=== PATIENT | female | born 1950 | race Caucasian/White ===

== ENCOUNTER → 2021-05-14 | Outpatient (CLI) | payer OTHER ==
[2021-05-14 13:40] LABS: Protein, Urine Quantitative <5.0 mg/dL (0.0-11.9)
== END | disposition home or self-care (01) ==
LOC: LAB 08:30 → LAB SHORT 08:30
PROVIDERS: Family Medicine
DX: R80.9 Proteinuria, unspecified (principal)
CPT/HCPCS: 81050; 84156

== ENCOUNTER → 2021-07-29 | Outpatient (CLI) | payer OTHER | END | disposition home or self-care (01) | LOC: LAB 11:51 → LAB SHORT 11:51 | DX: R82.998 Other abnormal findings in urine (principal) | CPT/HCPCS: 87086 ==

== ENCOUNTER → 2021-08-11 | Outpatient (CLI) | payer MEDICARE ==
[2021-08-12 13:59] LABS: Stool Occult Bld Immuno 1 Positive (NEGATIVE)
== END | disposition home or self-care (01) ==
LOC: LAB SHORT 05:40
PROVIDERS: Family Medicine
DX: Z12.11 Encounter for screening for malignant neoplasm of colon (principal)
CPT/HCPCS: G0328

== ENCOUNTER 2021-09-15 13:00 | Day surgery (SDC) | payer MEDICARE ==
[~2021-09-15] VITALS: Ht 162.6 cm; Wt 84.6 kg
[~2021-09-15 13:00] MED LIST: ALBU90OI; ATOR20; INSDET100; INVOKANA300 MG
--- NOTE | 2021-09-15 15:49 | NUR ---
09/15/21 1549 Delma Holman 17CC TOTAL OF SALINE INJECTED INTO DIFFERENT POLYPS TO HELP IN REMOVAL. PATIENT TOLERATED THIS WITHOUT PROBLEMS
--- NOTE | 2021-09-15 16:01 | NUR ---
09/15/21 1601 Delma Holman PATIENT REFUSED MULTIPLE OFFERS OF SOMETHING TO DRINK
== END 2021-09-15 15:58 | disposition home or self-care (01) ==
LOC: ORSCSDS 13:00
PROVIDERS: Internal Medicine Gastroenterology
PROC: 3E0H8KZ Introduction of Other Diagnostic Substance into Lower GI, Via Natural or Artificial Opening Endoscopic (ICD-10-PCS; principal; 2021-09-15 14:15)
PROC: 0DBP8ZX Excision of Rectum, Via Natural or Artificial Opening Endoscopic, Diagnostic (ICD-10-PCS; principal; 2021-09-15 14:15)
PROC: 0DBN8ZX Excision of Sigmoid Colon, Via Natural or Artificial Opening Endoscopic, Diagnostic (ICD-10-PCS; principal; 2021-09-15 14:15)
PROC: 0DBL8ZX Excision of Transverse Colon, Via Natural or Artificial Opening Endoscopic, Diagnostic (ICD-10-PCS; principal; 2021-09-15 14:15)
PROC: 0DBM8ZX Excision of Descending Colon, Via Natural or Artificial Opening Endoscopic, Diagnostic (ICD-10-PCS; principal; 2021-09-15 14:15)
PROC: 0DBE8ZX Excision of Large Intestine, Via Natural or Artificial Opening Endoscopic, Diagnostic (ICD-10-PCS; principal; 2021-09-15 14:15)
DX: K92.1 Melena (principal); R19.7 Diarrhea, unspecified; C18.4 Malignant neoplasm of transverse colon; Z85.038 Personal history of other malignant neoplasm of large intestine; Z86.010 Personal history of colon polyps; Z80.0 Family history of malignant neoplasm of digestive organs; D12.5 Benign neoplasm of sigmoid colon; D12.4 Benign neoplasm of descending colon; D12.3 Benign neoplasm of transverse colon; D12.8 Benign neoplasm of rectum; K64.4 Residual hemorrhoidal skin tags; E11.9 Type 2 diabetes mellitus without complications; Z79.4 Long term (current) use of insulin; Z79.899 Other long term (current) drug therapy
CPT/HCPCS: 82947; 88305; J2704; J7120

== ENCOUNTER 2021-11-11 08:37 | Day surgery (SDC) | payer MEDICARE ==
[~2021-11-11] VITALS: Ht 162.6 cm; Wt 83.3 kg
[~2021-11-11 08:37] MED LIST changes: -ALBU90OI; +ALBU90OI INH; -ATOR20; +ATOR20 PO; +IBUP800 PO; +METF500 PO; +OZEMPIC0.25 MG/0. SC; +PARAFON FORTE PO
--- NOTE | 2021-11-11 11:31 | NUR ---
REPORT TO GENIA RODRIGUEZ. DAIRY SPECIALIST AT BEDSIDE
--- NOTE | 2021-11-11 12:32 | NUR ---
Discharge instructions reviewed with patient. Patient verbalizes understanding. Copy given to patient to take home. Dressing to procedure site clean, dry, intact with no visible drainage, swelling, erythema or bruising noted.
--- NOTE | 2021-11-11 12:49 | NUR ---
Discharge instructions reviewed with patient. Patient verbalizes understanding. Copy given to patient to take home. Discharged via wheelchair to private car for ride home.
== END 2021-11-11 12:50 | disposition home or self-care (01) ==
LOC: ORSCMMR 08:37 → ORD 10:00 → ORSCMMR 10:00
PROVIDERS: Surgery
PROC: 05HM33Z Insertion of Infusion Device into Right Internal Jugular Vein, Percutaneous Approach (ICD-10-PCS; principal; 2021-11-11 10:00)
PROC: B543ZZA Ultrasonography of Right Jugular Veins, Guidance (ICD-10-PCS; principal; 2021-11-11 10:00)
DX: C18.4 Malignant neoplasm of transverse colon (principal); E11.9 Type 2 diabetes mellitus without complications; J45.909 Unspecified asthma, uncomplicated; Z79.84 Long term (current) use of oral hypoglycemic drugs; Z79.899 Other long term (current) drug therapy
CPT/HCPCS: 77001; 82947; C1788; J0690; J1100; J1642; J2250; J2405; J2704; J3010; J7120

== ENCOUNTER 2022-02-28 11:49 | Inpatient (IN) | payer MEDICARE ==
[~2022-02-28] VITALS: Ht 162.6 cm; Wt 76.0 kg
[2022-02-28 14:01] LABS: BASOPHILS ABSOLUTE AUTO 0.06 K/mm3 (0.00-0.23); BASOPHILS PERCENT AUTO 1 % (0-2); EOSINOPHILS ABSOLUTE AUTO 0.03 K/mm3 (0.00-0.68); EOSINOPHILS PERCENT AUTO 0 % (0-6); Hematocrit 42.6 % (33.0-51.0); IMMATURE GRAN ABSOLUTE AUTO 0.21 K/mm3 (0.00-0.10); IMMATURE GRAN PERCENT AUTO 3 % (0-1); LYMPHOCYTES PERCENT AUTO 15 % (21-46); MONOCYTES ABSOLUTE AUTO 1.02 K/mm3 (0.16-1.47); MONOCYTES PERCENT AUTO 12 % (4-13); Mean Corpuscular HGB Conc 32.9 g/dL (31.5-36.5); Mean Corpuscular Volume 88 fL (80-100); Mean Platelet Volume 9.6 fL (9.1-12.4); NEUTROPHILS ABSOLUTE AUTO 5.77 K/mm3 (1.96-9.15); NEUTROPHILS PERCENT AUTO 70 % (41-73); Platelet Count 154 K/mm3 (150-400); RDW Coefficient Variation 22.8 % (11.7-14.2); Red Blood Cell Count 4.82 M/mm3 (3.80-5.20); White Blood Cell Count 8.29 K/mm3 (4.00-11.30)
[2022-02-28 14:10] LABS: Alanine Aminotransfer (ALT/SGP 72 U/L (12-78); Albumin, Blood 3.5 g/dL (3.4-5.0); Albumin/Globulin Ratio 0.9 (0.8-1.8); Alk Phos 209 U/L (50-136); Anion Gap 6 mmol/L (6-16); Aspartate Aminotrans (AST/SGOT 72 U/L (12-37); Bilirubin, Total 0.6 mg/dL (0.1-1.0); Blood Urea Nitrogen 16 mg/dL (8-24); CO2, Blood 25 mmol/L (21-32); Calcium, Blood 9.2 mg/dL (8.5-10.1); Chloride, Blood 103 mmol/L (98-108); Creatinine, Blood 0.89 mg/dL (0.40-1.00); Globulin, Blood 3.8 g/dL (2.2-4.0); Glomerular Filtration Rate >60 (60-); Glucose, Blood 191 mg/dL (70-99); Potassium, Blood 4.9 mmol/L (3.5-5.5); Sodium, Blood 134 mmol/L (136-145); Total Protein, Blood 7.3 g/dL (6.4-8.2)
[2022-02-28 20:57] LABS: Influenza A, PCR NEGATIVE (NEGATIVE); Influenza B, PCR NEGATIVE (NEGATIVE); Resp Syncytial Virus, PCR NEGATIVE (NEGATIVE); SARS-Cov-2 (COVID-19) PCR, MMC NEGATIVE (NEGATIVE)
[2022-02-28] MEDS ORDERED: GLIMEPIRIDE4 MG PO (22:11)
[2022-02-28] MEDS ORDERED: Ondansetron Odt8 MG MM (22:11)
[2022-02-28] MEDS ORDERED: METFORMIN HCL500 M3 PO (22:12)
[2022-02-28] MEDS ORDERED: ATORVASTATIN CA20 MG PO (22:12)
--- NOTE | 2022-03-01 00:10 | NUR ---
PT ARRIVED TO FLOOR ROM ER. PT A/O, REP INCREASING WEAKNESS AND DIZZINESS, ALTHOUGH DENIES AT THIS TIME. PT REP GENERALIZED ABD PAIN, REP PAIN WORSENING SINCE 4/2 W/ONGOING N/V AT HOME. PT DENIES N/V AT THIS TIME, REP ABD PAIN HOMER AFTER MED IN ER. PT REPORTS CHRONIC DIARRHEA. PT HAVING SEVERAL IMPULSIVE EPISODES OF LIQ BROWN STOOL. PT ORINETED TO ROOM/CALL LIGHT. PT EDUCATED TO CALL FOR ASSISTANCE BEFORE GETTING OOB. PT NPO AWAITING SURGICAL PLANNING. WILL MONITOR AND TX PER ORDERS.
[2022-03-01 04:21] LABS: BASOPHILS ABSOLUTE AUTO 0.04 K/mm3 (0.00-0.23); BASOPHILS PERCENT AUTO 1 % (0-2); EOSINOPHILS ABSOLUTE AUTO 0.05 K/mm3 (0.00-0.68); EOSINOPHILS PERCENT AUTO 1 % (0-6); Hematocrit 36.7 % (33.0-51.0); Hemoglobin 11.7 g/dL (11.5-16.0); IMMATURE GRAN ABSOLUTE AUTO 0.14 K/mm3 (0.00-0.10); IMMATURE GRAN PERCENT AUTO 2 % (0-1); LYMPHOCYTES ABSOLUTE AUTO 0.96 K/mm3 (0.84-5.20); LYMPHOCYTES PERCENT AUTO 14 % (21-46); MONOCYTES ABSOLUTE AUTO 0.93 K/mm3 (0.16-1.47); MONOCYTES PERCENT AUTO 13 % (4-13); Mean Corpuscular HGB Conc 31.9 g/dL (31.5-36.5); Mean Corpuscular Volume 91 fL (80-100); Mean Platelet Volume 9.2 fL (9.1-12.4); NEUTROPHILS ABSOLUTE AUTO 4.89 K/mm3 (1.96-9.15); NEUTROPHILS PERCENT AUTO 70 % (41-73); Platelet Count 123 K/mm3 (150-400); RDW Coefficient Variation 22.7 % (11.7-14.2); RDW Standard Deviation 75.3 fL (35.1-46.3); Red Blood Cell Count 4.04 M/mm3 (3.80-5.20); White Blood Cell Count 7.01 K/mm3 (4.00-11.30)
[2022-03-01 04:40] LABS: Bun/Creatinine Ratio 16.7 (12.0-20.0); Calcium, Blood 8.4 mg/dL (8.5-10.1); Creatinine, Blood 1.02 mg/dL (0.40-1.00); Potassium, Blood 4.2 mmol/L (3.5-5.5)
--- NOTE | 2022-03-01 06:34 | NUR ---
PT NEW ADMIT THIS SHIFT FOR LARGE BOWEL OBST. PT VSS. PT HAS DENIED N/V SINCE ARRIVINGTO FLOOR, REP ABD PAIN HOMER, DECLINED NEED FOR PAIN MEDS. PT HAD SEVERAL EPISODES OF URGENT DIARRHEA; VOIDING LIQ BROWN STOOL. PT NPO SINCE ARRIVING TO FLOOR, IVF CONT PER ORDERS. PT UP OOB W/SBA R/T ONGOING WEAKNESS.
--- NOTE | 2022-03-01 09:53 | NUR ---
PT OUT OF ROOM FOR PROCEDURE AT THIS TIME.
--- NOTE | 2022-03-01 10:20 | NUR ---
PATIENT HAS POISON OAK ON ARMS AND HANDS BILATERALLY, ON LOWER LEGS BILATERALLY. PATIENT HAS ONE OPEN 1/4 CM SPOT ON HER RIGHT ABDOMEN FROM ITCHING POISON OAK ON ABDOMEN. THE SORE IS DRY, IS NOT LEAKING, HAS NO INFLAMMATION. THE BORDER IS PINK. DR. VARGAS TO BE NOTIFIED WHEN SHE SEES PATIENT.
--- NOTE | 2022-03-01 10:48 | NUR ---
DR. VARGAS SHOWN THE SMALL SORE ON PATIENT'S RIGHT ABDOMEN. AGREED WITH PATIENT TO PROCEED.
--- NOTE | 2022-03-01 16:39 | NUR ---
ARRIVAL TO UNIT PT ARRIVED FROM PACU AT 1630, SLID TO BED WITH SLIDE SHEET. PATIENT WILL AWAKEN TO VERBAL STIMULI AND ANSWER YES OR NO QUESTIONS. WHEN ASKED HOW SHE FEELS SHE WILL RESPOND WITH "PAIN" AND FALLS ASLEEP QUICKLY. SATS 94% ON ROOM AIR AT THIS TIME, WILL ENCOURAGE INCENTIVE SPIROMETRY PATIENT WAKES MORE. EDUCATED PATIENT ON MANAGING PAIN WHILE MANAGING RESPIRATORY EFFORT. BREATH SOUNDS SHALLOW BUT CLEAR. LAP SITES AND MIDLINE SITES CDI, DERMABOND IN PLACE. NO DRAINAGE SEEN. PAIN LOCALIZED TO ABDOMEN PER PT. WILL CONTINUE TO MONITOR AND TREAT PAIN PATIENT AWAKENS.
--- NOTE | 2022-03-01 19:02 | NUR ---
PT MUCH MORE ALERT AT THIS TIME, REPORTED THAT FENTANYL HAS REMAINED INEFFECTIVE IN MANAGING PAIN. SPOKE WITH HOSPITALIST WHO ORDERED DILAUDID, MEDICATED PER EMAR. PT REPORTS CURRENTLY TOLERABLE AT THIS TIME. SHE IS SLEEPING IN THE ROOM WITH NO GRIMACE. PLACED CONTINOUS PULSE OX ON THE PATIENT AT THIS TIME.
[2022-03-02 05:29] LABS: Hematocrit 31.1 % (33.0-51.0); Hemoglobin 9.8 g/dL (11.5-16.0); Mean Corpuscular HGB 29.4 pg (26.0-34.0); Mean Corpuscular HGB Conc 31.5 g/dL (31.5-36.5); Mean Corpuscular Volume 93 fL (80-100); Mean Platelet Volume 9.5 fL (9.1-12.4); NRBC ABSOLUTE 0.02 K/mm3 (0.00-0.02); NRBC Auto 0.2 /100 WBC (0.0-0.2); Platelet Count 139 K/mm3 (150-400); RDW Coefficient Variation 22.5 % (11.7-14.2); RDW Standard Deviation 77.3 fL (35.1-46.3); Red Blood Cell Count 3.33 M/mm3 (3.80-5.20); White Blood Cell Count 11.79 K/mm3 (4.00-11.30)
[2022-03-02 05:57] LABS: Albumin, Blood 2.5 g/dL (3.4-5.0); Anion Gap 7 mmol/L (6-16); Blood Urea Nitrogen 16 mg/dL (8-24); Bun/Creatinine Ratio 14.3 (12.0-20.0); CO2, Blood 23 mmol/L (21-32); Calcium, Blood 7.9 mg/dL (8.5-10.1); Chloride, Blood 111 mmol/L (98-108); Creatinine, Blood 1.12 mg/dL (0.40-1.00); Glomerular Filtration Rate 48 (60-); Glucose, Blood 198 mg/dL (70-99); Phosphorus, Blood 4.7 mg/dL (2.5-4.9); Potassium, Blood 4.5 mmol/L (3.5-5.5); Sodium, Blood 141 mmol/L (136-145)
--- NOTE | 2022-03-02 08:00 | NUR ---
POD 1 S/P SWEETIE COLECTOMY. PT VSS T/O NIGHT, SATS >93% ON RA. INCISIONS CDI. PT STRUGGLED W/PAIN MGMT EARLY IN SHIFT, REP BETTER PAIN CONTROL W/MORPHINE JAPANESE TUTOR, USED 9MG FROM JAPANESE TUTOR DURING NIGHT. PT DID C/O NAUSEA X2, NO EMESIS, REP RELIEF W/REGLAN. PO INTAKE MINIMAL, IVF CONT PER ORDERS. BRITT PATANT DRNG TELLY URINE. PT CONT TO REP DIZZINESS, DID NOT GET OOB UNTIL THIS AM; BRITT LEFT IN PLACE UNTIL LATER THIS AM PER PT REQ. BEDSIDE REPORT GIVEN TO MICHAEL GUZMÁN.
--- NOTE | 2022-03-03 03:47 | NUR ---
SUMMARY NO NEW ISSUES NOTED. PT PAIN IS MANAGED WELL. PT REPORTS DIZZINESS IS REDUCED BUT STILL OCCURS. PT HAS ATTEMPTED TO HAVE A BM WITH NO SUCCESS. PT CURRENTLY SLEEPING IN NO DISTRESS. CALL LIGHT IN REACH.
[2022-03-03 04:48] LABS: Hematocrit 26.1 % (33.0-51.0); Mean Corpuscular HGB 29.3 pg (26.0-34.0); Mean Corpuscular HGB Conc 30.7 g/dL (31.5-36.5); Mean Corpuscular Volume 96 fL (80-100); Mean Platelet Volume 9.5 fL (9.1-12.4); NRBC ABSOLUTE 0.03 K/mm3 (0.00-0.02); NRBC Auto 0.4 /100 WBC (0.0-0.2); Platelet Count 131 K/mm3 (150-400); RDW Coefficient Variation 22.7 % (11.7-14.2); RDW Standard Deviation 79.1 fL (35.1-46.3); Red Blood Cell Count 2.73 M/mm3 (3.80-5.20); White Blood Cell Count 8.26 K/mm3 (4.00-11.30)
[2022-03-03 05:57] LABS: Alanine Aminotransfer (ALT/SGP 25 U/L (12-78); Albumin, Blood 2.1 g/dL (3.4-5.0); Albumin/Globulin Ratio 0.7 (0.8-1.8); Alk Phos 117 U/L (50-136); Anion Gap 6 mmol/L (6-16); Aspartate Aminotrans (AST/SGOT 21 U/L (12-37); Bilirubin, Total 0.3 mg/dL (0.1-1.0); Blood Urea Nitrogen 11 mg/dL (8-24); Bun/Creatinine Ratio 13.3 (12.0-20.0); CO2, Blood 26 mmol/L (21-32); Calcium, Blood 7.9 mg/dL (8.5-10.1); Chloride, Blood 109 mmol/L (98-108); Creatinine, Blood 0.83 mg/dL (0.40-1.00); Ferritin, Serum 626 ng/mL (8-252); Glomerular Filtration Rate >60 (60-); Glucose, Blood 155 mg/dL (70-99); Iron Serum 26 ug/dL (50-170); Magnesium, Blood 1.7 mg/dL (1.6-2.4); Percent Saturation 11.5 % (15.0-50.0); Potassium, Blood 3.7 mmol/L (3.5-5.5); Sodium, Blood 141 mmol/L (136-145); Total Iron Binding Capacity 227 ug/dL (250-450); Total Protein, Blood 5.1 g/dL (6.4-8.2)
[2022-03-03 15:07] LABS: Hematocrit 30.9 % (33.0-51.0); Mean Corpuscular HGB 29.9 pg (26.0-34.0); Mean Corpuscular HGB Conc 32.4 g/dL (31.5-36.5); Mean Corpuscular Volume 93 fL (80-100); Mean Platelet Volume 9.4 fL (9.1-12.4); NRBC ABSOLUTE 0.03 K/mm3 (0.00-0.02); NRBC Auto 0.2 /100 WBC (0.0-0.2); Platelet Count 181 K/mm3 (150-400); RDW Coefficient Variation 22.2 % (11.7-14.2); RDW Standard Deviation 74.8 fL (35.1-46.3); Red Blood Cell Count 3.34 M/mm3 (3.80-5.20); White Blood Cell Count 13.37 K/mm3 (4.00-11.30)
--- NOTE | 2022-03-03 17:16 | NUR ---
SHIFT SUMMARY PT A&OX4, VSS/RA/BIOX ON/CBGS AC/HS, BRITT PATENT & DRAINING YELLOW URINE, STAND PIVOT WITH 1 PP MAX/GB, UP TO BSC, PAIN MANAGED WITH FOURDRINIER MACHINE TENDER MORPHINE, IVF @ 100 MLS/HR. POD2, LAP/OPEN SITES CDI, DENIES FLATUS/BM. NAUSEA TREATED WITH REGLAN, ZOFRAN X2 AND PHENERGAN, NOW RESTING WELL. WILL REPORT TO ONCOMING NOC RN.
--- NOTE | 2022-03-04 05:20 | NUR ---
SUMMARY N/V SLOWLY REDUCED DURING SHIFT. PT WAS ABLE TO GET ENOUGH RELIEF TO SLEEP SOME. PAIN HAS NOT BEEN A ISSUE. PT FIGURE REFINISHER AND REPAIRER IS WORKING WELL FOR PT. PT HAS BEEN ABLE TO PASS FLATUS THIS SHIFT BUT NO BM. PT CURRENTLY SLEEPING AND IN NO DISTRESS. CALL LIGHT IN REACH.
[2022-03-04 08:44] LABS: Hematocrit 30.2 % (33.0-51.0); Hemoglobin 9.7 g/dL (11.5-16.0); Mean Corpuscular HGB Conc 32.1 g/dL (31.5-36.5); Mean Corpuscular Volume 94 fL (80-100); Mean Platelet Volume 8.9 fL (9.1-12.4); Platelet Count 190 K/mm3 (150-400); RDW Coefficient Variation 21.3 % (11.7-14.2); RDW Standard Deviation 72.8 fL (35.1-46.3); Red Blood Cell Count 3.23 M/mm3 (3.80-5.20); White Blood Cell Count 10.29 K/mm3 (4.00-11.30)
[2022-03-04 09:03] LABS: Alanine Aminotransfer (ALT/SGP 25 U/L (12-78); Albumin, Blood 2.2 g/dL (3.4-5.0); Albumin/Globulin Ratio 0.6 (0.8-1.8); Alk Phos 143 U/L (50-136); Anion Gap 6 mmol/L (6-16); Aspartate Aminotrans (AST/SGOT 19 U/L (12-37); Bilirubin, Total 0.5 mg/dL (0.1-1.0); Blood Urea Nitrogen 12 mg/dL (8-24); Bun/Creatinine Ratio 14.9 (12.0-20.0); CO2, Blood 30 mmol/L (21-32); Calcium, Blood 8.2 mg/dL (8.5-10.1); Chloride, Blood 104 mmol/L (98-108); Globulin, Blood 3.7 g/dL (2.2-4.0); Glomerular Filtration Rate >60 (60-); Glucose, Blood 190 mg/dL (70-99); Potassium, Blood 3.6 mmol/L (3.5-5.5); Sodium, Blood 140 mmol/L (136-145); Total Protein, Blood 5.9 g/dL (6.4-8.2)
--- NOTE | 2022-03-04 18:28 | NUR ---
SHIFT SUMMARY PT A&OX4, VSS/RA, CBGS /HC, HOMER PO CLD/LOW PO INTAKE, N&V HAS IMPROVED TODAY/PHENERGAN MANAGES IT WELL. BRITT PATENT & DRAINING TELLY URINE, STAT LOCK ON, OFF FLOOR; BMS-GREEN LIQUID/MULTIPLE. PAIN MANAGED WELL WITH ETL ANALYST. AMB W/FWW & GB TO BSC/DOWN HALLWAY WITH PT, UP TO CHAIR FOR COUPLE HOURS. POD4 OPEN SWEETIE COLECTOMY, LAP SITES CDI. WILL REPORT TO ONCOMING NOC RN.
[2022-03-05 04:30] LABS: Hematocrit 24.8 % (33.0-51.0); Hemoglobin 7.8 g/dL (11.5-16.0); Mean Corpuscular HGB 29.9 pg (26.0-34.0); Mean Corpuscular HGB Conc 31.5 g/dL (31.5-36.5); Mean Corpuscular Volume 95 fL (80-100); Mean Platelet Volume 9.1 fL (9.1-12.4); Platelet Count 135 K/mm3 (150-400); RDW Coefficient Variation 21.3 % (11.7-14.2); RDW Standard Deviation 74.1 fL (35.1-46.3); Red Blood Cell Count 2.61 M/mm3 (3.80-5.20); White Blood Cell Count 6.97 K/mm3 (4.00-11.30)
[2022-03-05 04:55] LABS: Alanine Aminotransfer (ALT/SGP 20 U/L (12-78); Albumin, Blood 1.9 g/dL (3.4-5.0); Albumin/Globulin Ratio 0.7 (0.8-1.8); Alk Phos 109 U/L (50-136); Anion Gap 4 mmol/L (6-16); Aspartate Aminotrans (AST/SGOT 14 U/L (12-37); Bilirubin, Total 0.3 mg/dL (0.1-1.0); Blood Urea Nitrogen 8 mg/dL (8-24); Bun/Creatinine Ratio 10.6 (12.0-20.0); CO2, Blood 30 mmol/L (21-32); Calcium, Blood 7.9 mg/dL (8.5-10.1); Chloride, Blood 108 mmol/L (98-108); Creatinine, Blood 0.76 mg/dL (0.40-1.00); Globulin, Blood 2.9 g/dL (2.2-4.0); Glomerular Filtration Rate >60 (60-); Glucose, Blood 111 mg/dL (70-99); Potassium, Blood 3.6 mmol/L (3.5-5.5); Sodium, Blood 142 mmol/L (136-145); Total Protein, Blood 4.8 g/dL (6.4-8.2)
--- NOTE | 2022-03-05 05:07 | NUR ---
SHIFT SUMMARY POD5 S/P HEMICOLECTOMY. LAP SITE CDI. PT REPORTS MILD ABD PAIN, PAIN MANAGED WITH MORPHINE SULFATE BRAZING MACHINE SETTER. AND NAUSEA X1. MEDICATED WITH PHENEGRAN. PT SLEPT GOOD OVERNIGHT. UP IN THE BSC, GREEN STOOL. HAD 1 SMALL BM. VOIDING ADEQUATELY WITH BRITT IN PLACED, OFF GRAVITY, PATENT. VSS. TOLERATING PO INTAKE. DENIES VOMITING. CALL LIGHT WTIHIN REACH. WILL PROVIDE REPORT TO ONCOMING NURSE.
--- NOTE | 2022-03-05 18:30 | NUR ---
PATIENT'S STRENGTH HAS BEEN STEADILY IMPROVING THROUGHOUT THE DAY. PATIENT WAS INITIALLY A 1 PERSON ASSIST TO THE COMMODE BUT IS NOW ABLE TO TRANSFER INDEPENDENTLY. MEDICATIONS GIVEN ORDERED THROUGHOUT THE SHIFT. BRITT DISCONTINUED DURING SHIFT. PATIENT REPORTS NO DIFFICULTY VOIDING URING AND PASSED 3 WATERY STOOLS DURING THIS SHIFT. SAFIA REPORTS THAT SHE WOULD LIKE TO WEAN OFF OF HER MORTAR MIXER PUMP, REQUESTING ORAL ANALGESIC MEDICATIONS INSTEAD. PATIENT IS RESTING PEACEFULY AT THE TIME OF THIS NOTE.
[2022-03-06 04:27] LABS: Hematocrit 23.4 % (33.0-51.0); Hemoglobin 7.4 g/dL (11.5-16.0); Mean Corpuscular HGB Conc 31.6 g/dL (31.5-36.5); Mean Corpuscular Volume 95 fL (80-100); Mean Platelet Volume 9.5 fL (9.1-12.4); NRBC ABSOLUTE 0.02 K/mm3 (0.00-0.02); NRBC Auto 0.3 /100 WBC (0.0-0.2); Platelet Count 148 K/mm3 (150-400); RDW Coefficient Variation 20.6 % (11.7-14.2); RDW Standard Deviation 72.7 fL (35.1-46.3); Red Blood Cell Count 2.47 M/mm3 (3.80-5.20); White Blood Cell Count 7.15 K/mm3 (4.00-11.30)
[2022-03-06 04:51] LABS: Alanine Aminotransfer (ALT/SGP 17 U/L (12-78); Albumin, Blood 1.8 g/dL (3.4-5.0); Albumin/Globulin Ratio 0.6 (0.8-1.8); Alk Phos 101 U/L (50-136); Anion Gap 3 mmol/L (6-16); Aspartate Aminotrans (AST/SGOT 15 U/L (12-37); Bilirubin, Total 0.2 mg/dL (0.1-1.0); Blood Urea Nitrogen 9 mg/dL (8-24); CO2, Blood 29 mmol/L (21-32); Calcium, Blood 7.3 mg/dL (8.5-10.1); Chloride, Blood 110 mmol/L (98-108); Creatinine, Blood 0.82 mg/dL (0.40-1.00); Glomerular Filtration Rate >60 (60-); Glucose, Blood 153 mg/dL (70-99); Magnesium, Blood 1.4 mg/dL (1.6-2.4); Potassium, Blood 3.2 mmol/L (3.5-5.5); Sodium, Blood 142 mmol/L (136-145); Total Protein, Blood 4.8 g/dL (6.4-8.2)
--- NOTE | 2022-03-06 05:33 | NUR ---
SHIFT SUMMARY NO ACUTE CHANGES OVERNIGHT. PT REPORTS SOME DIZZINESS AFTER GETTING UP TO THE BSC. MEDICATED WITH MECLIZINE ONCE. VSS. PT MILD NAUSEA BEFORE BED. MEDICATED WITH PHENEGRAN ONCE. PT DENIES VOMITING. ART CRITIC PUMP STILL IN USE. BT PRESENT. PT HAD BM, PASSING FLATUS AND VOIDING WITHOUT DIFFICULTY. AMBULATES WITH 1 SBA AT BSC. TOLERATING PO INTAKE. CALL LIGHT WITHIN REACH. WILL PROVIDE REPORT TO ONCOMING NURSE.
--- NOTE | 2022-03-06 09:08 | NUR ---
REAL ESTATE SALESPERSON ALL DOSES OF INSULIN WERE VERIFIED BY THE 2ND RN LISTED IN DOCUMENTATION AND THIS RN AND GIVEN BY THE REAL ESTATE SALESPERSON ON 03/05/2022
--- NOTE | 2022-03-06 18:52 | NUR ---
PT'S LLQ NOTED TO BE FIRMER AND MORE BRUISED THAN OTHER ACCESS SITES AT THE START OF SHIFT. DR VARGAS ASSESSED THE PATIENT'S SURGICAL SITES THIS AM. PT STARTED ON SCOPOLAMINE PATCH. PT ABLE TO AMBULATE APPROX 120FT WITH WALKER. PT'S RETAIL MERCHANDISING MANAGER PUMP MORPHINE REPLACED W/ NEW VIAL. PUMP VALUE CLEARED @ 1800. PT STILL ABLE TO AMBULATE HERSELF TO THE COMMODE. STILL TOLERATING NORMAL DIET. PT IS RESTING PEACEFULLY IN HER ROOM AT THE TIME OF THIS NOTE.
--- NOTE | 2022-03-06 19:34 | NUR ---
ENGRAVED ROLLER INSPECTOR ALL ENGRAVED ROLLER INSPECTOR DOCUMENTATION DONE TODAY REVIEWED BY THIS RN AND FOUND TO BE ACCURATE OF THE TIME OF THIS NOTE
--- NOTE | 2022-03-07 04:14 | NUR ---
PT IS A&OX4, INDEPENDENT IN ROOM AND CALLS APPROPRIATELY. POST OP DAY 6 FOR PARTIAL LAP COLECTOMY, HAS MIDLINE INCISION THAT IS OPEN TO AIR, IS CLEAN AND DRY. LEFT ABD IS FIRM, PT REPORTS MILD DISCOMFORT. PAIN IS CONTROLLED WITH LEATHER SORTER MORPHINE AND PRN ANTONINA 5MG, PT REPORTS PAIN IS MUCH IMPROVED. PT SLEEPS THROUGH THE NIGHT 7 HOURS. VSS. WILL CONTINUE TO MONITOR.
[2022-03-07 08:38] LABS: BASOPHILS ABSOLUTE AUTO 0.03 K/mm3 (0.00-0.23); BASOPHILS PERCENT AUTO 0 % (0-2); EOSINOPHILS ABSOLUTE AUTO 0.07 K/mm3 (0.00-0.68); EOSINOPHILS PERCENT AUTO 1 % (0-6); Hematocrit 26.2 % (33.0-51.0); Hemoglobin 8.2 g/dL (11.5-16.0); IMMATURE GRAN ABSOLUTE AUTO 0.33 K/mm3 (0.00-0.10); IMMATURE GRAN PERCENT AUTO 5 % (0-1); LYMPHOCYTES ABSOLUTE AUTO 1.05 K/mm3 (0.84-5.20); LYMPHOCYTES PERCENT AUTO 14 % (21-46); MONOCYTES ABSOLUTE AUTO 0.69 K/mm3 (0.16-1.47); MONOCYTES PERCENT AUTO 10 % (4-13); Mean Corpuscular HGB 29.7 pg (26.0-34.0); Mean Corpuscular HGB Conc 31.3 g/dL (31.5-36.5); Mean Corpuscular Volume 95 fL (80-100); Mean Platelet Volume 9.1 fL (9.1-12.4); NEUTROPHILS ABSOLUTE AUTO 5.13 K/mm3 (1.96-9.15); NEUTROPHILS PERCENT AUTO 70 % (41-73); NRBC ABSOLUTE 0.02 K/mm3 (0.00-0.02); NRBC Auto 0.3 /100 WBC (0.0-0.2); Platelet Count 177 K/mm3 (150-400); RDW Coefficient Variation 20.9 % (11.7-14.2); RDW Standard Deviation 72.6 fL (35.1-46.3); Red Blood Cell Count 2.76 M/mm3 (3.80-5.20)
[2022-03-07 08:55] LABS: Anion Gap 5 mmol/L (6-16); Blood Urea Nitrogen 5 mg/dL (8-24); Bun/Creatinine Ratio 8.4 (12.0-20.0); CO2, Blood 27 mmol/L (21-32); Calcium, Blood 7.3 mg/dL (8.5-10.1); Chloride, Blood 109 mmol/L (98-108); Creatinine, Blood 0.59 mg/dL (0.40-1.00); Glomerular Filtration Rate >60 (60-); Glucose, Blood 128 mg/dL (70-99); Magnesium, Blood 2.1 mg/dL (1.6-2.4); Potassium, Blood 3.6 mmol/L (3.5-5.5); Sodium, Blood 141 mmol/L (136-145)
--- NOTE | 2022-03-07 11:06 | NUR ---
DC'D THE SUPPLY AIDE PUMP PER PT STATED SHE DON'T NEED THE FLUIDS, SO STOPPED THE FLUIDS AT THIS TIME. ALSO DC'D THE SUPPLY AIDE AND WASTE WITH CEE RODRIGUEZ.
--- NOTE | 2022-03-07 15:58 | NUR ---
SHIFT SUMMARY PT AOX4; CALLS APPROPRIATELY. DC'D FUEL RETROFITTING TECHNICIAN PUMP THIS AM, PT WAS NOT VERY HAPPY ABOUT IT . THERE IS SEVERAL PAIN MEDICATION ORDERED BY THE DR IF NEEDED TO ENSURE THAT PT PAIN IS CONTROLLED. MEDICATED PER EMAR. REFUSED THIS AM TO HEPARIN LOCK THE MEDIPORT AND REFUSED TO LET THE NS RUN WHILE THE MEDIPORT IS STILL ACCESSED, SHE STATED THAT SHE USUALLY DO HEPARIN LOCK IF SHE WON'T NEED THE LINE ANYMORE. PT ALSO REFUSED SOME PO MEDS THIS AM. SHE STATED THAT "I WILL KEEP THE MEDIPORT OPEN FOR PRN PAIN MEDS WHILE I AM HERE." SHE KNOWS THAT SHE IS READY FOR DC, JUST AWAITS FOR DR VARGAS APPROVAL PER DR AKBAR. BED IS IN THE LOWEST POSITION AND CALL LIGHT WITHIN REACH
--- NOTE | 2022-03-07 16:16 | NUR ---
CARE ASSUMED. PT RESTING IN BED. WILL CONTINUE TO MONITOR.
--- NOTE | 2022-03-07 19:00 | NUR ---
SHIFT SUMMARY NO CHANGES TO REPORT SINCE CARE ASSUMED OF PT. PT DECLINED HER CORRECTION SCALE INSULIN FOR CBG OF 151 WITH DINNER. REPORT GIVEN TO DAVE RODRIGUEZ.
[2022-03-08 03:55] LABS: BASOPHILS ABSOLUTE AUTO 0.04 K/mm3 (0.00-0.23); BASOPHILS PERCENT AUTO 1 % (0-2); EOSINOPHILS ABSOLUTE AUTO 0.07 K/mm3 (0.00-0.68); EOSINOPHILS PERCENT AUTO 1 % (0-6); Hemoglobin 8.1 g/dL (11.5-16.0); IMMATURE GRAN ABSOLUTE AUTO 0.27 K/mm3 (0.00-0.10); IMMATURE GRAN PERCENT AUTO 4 % (0-1); LYMPHOCYTES ABSOLUTE AUTO 1.27 K/mm3 (0.84-5.20); LYMPHOCYTES PERCENT AUTO 19 % (21-46); MONOCYTES ABSOLUTE AUTO 0.63 K/mm3 (0.16-1.47); MONOCYTES PERCENT AUTO 9 % (4-13); Mean Corpuscular HGB Conc 31.2 g/dL (31.5-36.5); Mean Corpuscular Volume 96 fL (80-100); Mean Platelet Volume 9.7 fL (9.1-12.4); NEUTROPHILS PERCENT AUTO 67 % (41-73); Platelet Count 195 K/mm3 (150-400); RDW Coefficient Variation 21.1 % (11.7-14.2); RDW Standard Deviation 74.2 fL (35.1-46.3); White Blood Cell Count 6.88 K/mm3 (4.00-11.30)
[2022-03-08 04:15] LABS: Anion Gap 4 mmol/L (6-16); Blood Urea Nitrogen 5 mg/dL (8-24); Bun/Creatinine Ratio 7.6 (12.0-20.0); CO2, Blood 28 mmol/L (21-32); Calcium, Blood 7.7 mg/dL (8.5-10.1); Chloride, Blood 108 mmol/L (98-108); Creatinine, Blood 0.66 mg/dL (0.40-1.00); Glomerular Filtration Rate >60 (60-); Glucose, Blood 125 mg/dL (70-99); Potassium, Blood 3.8 mmol/L (3.5-5.5); Sodium, Blood 140 mmol/L (136-145)
--- NOTE | 2022-03-08 06:34 | NUR ---
SUMMARY NO NEW ISSUES NOTED PT TX PER EMAR WITH RELIEF. PT HAD SOME NAUSEA AND RESPOND WELL TO TX. PT HAD NO NEW ISSUES NOTED. PT SLEPT WELL T/OUT SHIFT. CALL LIGHT IN REACH.
[2022-03-08] MEDS ORDERED: MASOPHEN325 M3 PO (09:51)
[2022-03-08] MEDS ORDERED: MECL25 PO (09:57)
[2022-03-08] MEDS ORDERED: TRANSDERM-SCOP1 EAC1 TD (09:58)
[2022-03-08] MEDS ORDERED: METO10 PO (09:59)
[2022-03-08] MEDS ORDERED: OXYC5 PO (10:00)
[2022-03-08] MEDS ORDERED: PROMETHAZINE12.5 M1 PO (10:01)
--- NOTE | 2022-03-08 18:39 | NUR ---
SHIFT SUMMARY PT IS POD#7 FROM R HEMICOLECTOMY. PAIN MANAGED WITH PO PAIN MEDICATION. PT REPORTS SOME NAUSEA MANAGED WITH ZOFRAN ODT THIS SHIFT. BOWEL SOUNDS PRESENT X4 QUADRANT, PASSING FLATUS AND HAVING BMS. PT IS A SBA IN HER ROOM. PLAN FOR DISCHARGE HOME TOMORROW MORNING.
--- NOTE | 2022-03-09 06:12 | NUR ---
SUMMARY NO NEW ISSUES. PT MEDIPORT DEACCESSED. PT PAIN MANAGED WELL AND ABLE TO SLEEP. PT CURRENTLY AWAKE AND IN NO DITRESS.
--- NOTE | 2022-03-09 07:35 | NUR ---
ASSUMED CARE: PT RESTING IN BED, ASKED FOR NAUSEA MEDICATIONS. BOWEL TONES HYPOACTIVE, PT C/O TENDERNESS NEAR INCISION. STATES SHE WAS TOLD THERE MAY BE A HEMATOMA LEFT ABDOMEN DUE TO THAT SIDE BEING MORE FIRM. DENIES SIGNIFICANT PAIN OR CONCERNS AT THIS TIME.
--- NOTE | 2022-03-09 10:39 | NUR ---
REVIEWED DC INSTRUCTIONS WITH PT. IV REMOVED BY NIGHT RN. PT SPOKE WITH HOME HEALTH REGARDING MEETING TIME FOR EQUIPMENT TO BE DROPPED OFF. PT DENIED FURTHER QUESTIONS OR CONCERNS. ESCORTED OUT VIA WHEEL CHAIR BY HOSPITAL STAFF
--- NOTE | 2022-03-09 14:42 | NUR ---
Patient did not discharge yesterday- 03/08/2022. Review of records today- 03/09/2022 indicate that patient has now discharged. Gathered supporting documentation for review by [facility]. No further interventions required. Kaila Kenny Referral Liaison
== END 2022-03-09 10:40 | disposition home health service (06) | DRG 330 ==
LOC: ER 11:49 → SURS 21:17
PROVIDERS: Emergency Medicine; Family Medicine; Internal Medicine; Surgery; ADMIT Internal Medicine
PROC: 0DTF0ZZ Resection of Right Large Intestine, Open Approach (ICD-10-PCS; principal; 2022-03-02)
PROC: 0DNU0ZZ Release Omentum, Open Approach (ICD-10-PCS; 2022-03-02)
DX: C18.9 Malignant neoplasm of colon, unspecified (principal); K56.699 Other intestinal obstruction unspecified as to partial versus complete obstruction; N17.9 Acute kidney failure, unspecified; D62 Acute posthemorrhagic anemia; E11.9 Type 2 diabetes mellitus without complications; E86.9 Volume depletion, unspecified; Z20.822 Contact with and (suspected) exposure to COVID-19; E86.0 Dehydration; E78.5 Hyperlipidemia, unspecified; E83.42 Hypomagnesemia; D63.1 Anemia in chronic kidney disease; E86.1 Hypovolemia; Z88.1 Allergy status to other antibiotic agents; Z91.09 Other allergy status, other than to drugs and biological substances; Z79.84 Long term (current) use of oral hypoglycemic drugs; Z79.899 Other long term (current) drug therapy; Z98.890 Other specified postprocedural states; Z72.0 Tobacco use; Z90.49 Acquired absence of other specified parts of digestive tract; Z90.710 Acquired absence of both cervix and uterus; Z90.722 Acquired absence of ovaries, bilateral
CPT/HCPCS: 0241U; 36415; 70450; 71260; 74177; 80048; 80053; 80069; 82378; 82728; 82947; 83540; 83550; 83690; 83735; 85025; 85027; 88309; 88341; 88342; 93005; 93010; 94760; 96374; 96375; 96376; 97110; 97116; 97162; 97165; 97530; 97535; 99285-25; A9270; J0694; J1100; J1170; J1642; J1650; J2270; J2405; J2550; J2704; J2765; J3010; J3475; J7030; J7040; J7120; Q9967

== ENCOUNTER 2022-03-22 11:46 | Observation (INO) | payer MEDICARE ==
[~2022-03-22] VITALS: Ht 162.6 cm; Wt 75.6 kg
[~2022-03-22 11:46] MED LIST changes: +ATORVASTATIN CA20 MG PO; +GLIMEPIRIDE4 MG PO; +MASOPHEN325 M3 PO; +MECL25 PO; +METFORMIN HCL500 M3 PO; +METO10 PO; +OXYC5 PO; +Ondansetron Odt8 MG MM; +PROMETHAZINE12.5 M1 PO; +TRANSDERM-SCOP1 EAC1 TD
[2022-03-22 12:35] LABS: BASOPHILS ABSOLUTE AUTO 0.04 K/mm3 (0.00-0.23); BASOPHILS PERCENT AUTO 0 % (0-2); EOSINOPHILS ABSOLUTE AUTO 0.07 K/mm3 (0.00-0.68); EOSINOPHILS PERCENT AUTO 1 % (0-6); Hematocrit 38.9 % (33.0-51.0); Hemoglobin 12.3 g/dL (11.5-16.0); IMMATURE GRAN ABSOLUTE AUTO 0.05 K/mm3 (0.00-0.10); IMMATURE GRAN PERCENT AUTO 1 % (0-1); LYMPHOCYTES ABSOLUTE AUTO 1.19 K/mm3 (0.84-5.20); LYMPHOCYTES PERCENT AUTO 11 % (21-46); MONOCYTES ABSOLUTE AUTO 1.03 K/mm3 (0.16-1.47); MONOCYTES PERCENT AUTO 9 % (4-13); Mean Corpuscular HGB 29.6 pg (26.0-34.0); Mean Corpuscular HGB Conc 31.6 g/dL (31.5-36.5); Mean Corpuscular Volume 94 fL (80-100); NEUTROPHILS ABSOLUTE AUTO 8.67 K/mm3 (1.96-9.15); NEUTROPHILS PERCENT AUTO 78 % (41-73); Platelet Count 273 K/mm3 (150-400); RDW Coefficient Variation 15.9 % (11.7-14.2); RDW Standard Deviation 54.1 fL (35.1-46.3); Red Blood Cell Count 4.15 M/mm3 (3.80-5.20); White Blood Cell Count 11.05 K/mm3 (4.00-11.30)
[2022-03-22 13:00] LABS: Albumin, Blood 3.5 g/dL (3.4-5.0); Albumin/Globulin Ratio 0.8 (0.8-1.8); Bilirubin, Total 0.6 mg/dL (0.1-1.0); Bun/Creatinine Ratio 12.6 (12.0-20.0); Calcium, Blood 9.3 mg/dL (8.5-10.1); Creatinine, Blood 1.11 mg/dL (0.40-1.00); Globulin, Blood 4.4 g/dL (2.2-4.0); Potassium, Blood 3.9 mmol/L (3.5-5.5); Total Protein, Blood 7.9 g/dL (6.4-8.2)
[2022-03-22 16:33] LABS: Source, Urine Clean Catch
[2022-03-22 16:40] LABS: Appearance, Urine Hazy (Clear); Bilirubin, Urine Neg (Neg); Blood, Urine 3+ (Neg); Color, Urine Yellow (P-Yellow); Glucose Qualitative, Urine Neg (Neg); Ketones, Urine 1+ (Neg); Leukocyte Esterase, Urine 3+ (Neg); Nitrite, Urine Neg (Neg); Protein, Urine 2+ (Neg); Specific Gravity, Urine 1.025 (1.003-1.022); Urobilinogen, Urine NORM (Normal)
[2022-03-22 17:28] LABS: Amorphous Light (0-Heavy); Bacteria Many /hpf; Mucus Light (0-Heavy); Squamous Epithelial Cells Few /hpf (Few); White Blood Cells, Urine 25-50 /hpf (0-5)
[2022-03-22] MEDS ORDERED: IMODIUM A-D2 M1 PO (22:33)
--- NOTE | 2022-03-22 22:36 | NUR ---
NEW ADMIT PT ARRIVED TO AT 2218, IND TRANSFER TO 354 BED. ORIENTED TO CALL LIGHT & . DX c URETERAL STONE THIS ADMIT. WILL MONITOR
[2022-03-23 03:17] LABS: Adenovirus F 40/41 Not Detected (NOT DETECT); Astrovirus Not Detected (NOT DETECT); Campylobacter Sp Not Detected (NOT DETECT); Cryptosporidium Not Detected (NOT DETECT); Cyclospora Cayetanensis Not Detected (NOT DETECT); E. Coli O157 Not Detected (NOT DETECT); Entamoeba Histolytica Not Detected (NOT DETECT); Enteroaggregative E. coli-EAEC Not Detected (NOT DETECT); Enteropathogenic E. coli-EPEC Not Detected (NOT DETECT); Enterotoxigenic E. coli-ETEC Not Detected (NOT DETECT); Giardia Lamblia Not Detected (NOT DETECT); Norovirus GI/GII Not Detected (NOT DETECT); Plesiomonas Shigelloides Not Detected (NOT DETECT); Rotavirus A Not Detected (NOT DETECT); Salmonella Sp Not Detected (NOT DETECT); Sapovirus Not Detected (NOT DETECT); Shiga Toxin-prod E. coli-STEC Not Detected (NOT DETECT); Shigella/Enteroin E. coli-EIEC Not Detected (NOT DETECT); Vibrio Cholerae Not Detected (NOT DETECT); Vibrio Sp Not Detected (NOT DETECT); Yersinia Enterocolitica Not Detected (NOT DETECT)
[2022-03-23 05:01] LABS: BASOPHILS ABSOLUTE AUTO 0.02 K/mm3 (0.00-0.23); BASOPHILS PERCENT AUTO 0 % (0-2); EOSINOPHILS ABSOLUTE AUTO 0.16 K/mm3 (0.00-0.68); EOSINOPHILS PERCENT AUTO 3 % (0-6); Hematocrit 30.2 % (33.0-51.0); Hemoglobin 9.1 g/dL (11.5-16.0); IMMATURE GRAN ABSOLUTE AUTO 0.01 K/mm3 (0.00-0.10); IMMATURE GRAN PERCENT AUTO 0 % (0-1); LYMPHOCYTES ABSOLUTE AUTO 1.36 K/mm3 (0.84-5.20); LYMPHOCYTES PERCENT AUTO 28 % (21-46); MONOCYTES ABSOLUTE AUTO 0.55 K/mm3 (0.16-1.47); MONOCYTES PERCENT AUTO 11 % (4-13); Mean Corpuscular HGB 29.9 pg (26.0-34.0); Mean Corpuscular HGB Conc 30.1 g/dL (31.5-36.5); Mean Platelet Volume 9.4 fL (9.1-12.4); NEUTROPHILS ABSOLUTE AUTO 2.81 K/mm3 (1.96-9.15); NEUTROPHILS PERCENT AUTO 57 % (41-73); Platelet Count 143 K/mm3 (150-400); RDW Coefficient Variation 15.9 % (11.7-14.2); RDW Standard Deviation 57.3 fL (35.1-46.3); Red Blood Cell Count 3.04 M/mm3 (3.80-5.20); White Blood Cell Count 4.91 K/mm3 (4.00-11.30)
[2022-03-23 05:02] LABS: Mean Corpuscular Volume 99 fL (80-100)
--- NOTE | 2022-03-23 05:02 | NUR ---
SHIFT SUMMARY AOX4. VSS. TELE NSR HR 70'S. REPORTED 8/10 R FLANK PAIN RAIDIATING TO RLQ ABD IN ER, ONCE UP TO FLOOR PT DENIED ANY PAIN 0/10. DENIES DYSPNEA OR N/V. HAD 3 LIQUID BM UPON ARRIVING TO FLOOR, STOOL SAMPLE COLLECTED & NEGATIVE. PT STATES SHE MAY HAVE PASSED URETERAL STONE IN ER, CURRENTLY STRAINING URINE TO CHECK FOR POSSIBLE STONE. PT NPO SINCE MIDNIGHT FOR US & POSSIBLE NEPHROSTOMY PLACEMENT DEPENDING ON US RESULTS. PT IND IN RM & CALL LIGHT IN REACH. WILL MONITOR.
[2022-03-23 05:25] LABS: Albumin, Blood 2.6 g/dL (3.4-5.0); Albumin/Globulin Ratio 0.8 (0.8-1.8); Bilirubin, Total 0.2 mg/dL (0.1-1.0); Bun/Creatinine Ratio 11.9 (12.0-20.0); Creatinine, Blood 1.26 mg/dL (0.40-1.00); Globulin, Blood 3.4 g/dL (2.2-4.0); Potassium, Blood 3.9 mmol/L (3.5-5.5)
[2022-03-23 15:49] LABS: Calcium, Blood 8.2 mg/dL (8.5-10.1)
[2022-03-23 16:18] LABS: Bun/Creatinine Ratio 10.5 (12.0-20.0); Creatinine, Blood 0.95 mg/dL (0.40-1.00)
[2022-03-23] MEDS ORDERED: CEFD300 PO (16:47)
[2022-03-23] MEDS ORDERED: Flomax0.4 MG PO (16:48)
--- NOTE | 2022-03-23 17:25 | NUR ---
DISCHARGE SUMMARY PT DISCHARGED HOME TODAY AT 1715. PORT FLUSHED AND DEACCESSED, DISCHARGE PAPERWORK GONE OVER, AND PT QUESTIONS ANSWERED.
--- NOTE | 2022-03-24 08:02 | NUR ---
Patient is a [facility] patient who was transferred to [facility] on 03/22/2022 due to ureteral stones. Patient has now discharged. As patient was obs status, no resumption of home health is required. However, gathered documentation related to admission (face sheet, med list, and H&P) and faxed to [facility] for review. No further interventions required. Kaila Kenny Referral Liaison
== END 2022-03-23 17:31 | disposition home or self-care (01) ==
LOC: ER 11:46 → MEDS 11:47
PROVIDERS: Physician Assistant; Student in an Organized Health Care Education/Training Program; ADMIT Internal Medicine
DX: N13.6 Pyonephrosis (principal); C18.9 Malignant neoplasm of colon, unspecified; E11.9 Type 2 diabetes mellitus without complications; E78.5 Hyperlipidemia, unspecified; D53.9 Nutritional anemia, unspecified; Z88.1 Allergy status to other antibiotic agents; Z88.8 Allergy status to other drugs, medicaments and biological substances; Z90.49 Acquired absence of other specified parts of digestive tract
CPT/HCPCS: 36415; 74176; 76770; 80048; 80053; 81001; 82947; 83690; 85025; 87086; 87507; 96372; 96374; 96375; 96376; 99285-25; A9270; G0378; J0696; J1642; J1650; J1885; J2270; J2405; J7030; J7120